=== PATIENT | female | born 1960 | race Caucasian/White ===

== ENCOUNTER 2024-01-06 07:53 | Outpatient (CLI) | payer OTHER | END 2024-01-06 07:54 | disposition home or self-care (01) | LOC: CSHULT 07:53 | PROVIDERS: ATTEND Physician Assistant Medical | DX: R49.0 Dysphonia (principal); K21.9 Gastro-esophageal reflux disease without esophagitis; K44.9 Diaphragmatic hernia without obstruction or gangrene; R10.13 Epigastric pain; R10.11 Right upper quadrant pain; Z86.010 Personal history of colon polyps; K76.0 Fatty (change of) liver, not elsewhere classified | CPT/HCPCS: 76705 ==

== ENCOUNTER 2024-02-09 09:46 | Outpatient (CLI) | payer OTHER | END 2024-02-09 09:47 | disposition home or self-care (01) | LOC: CSHRAD 09:46 | PROVIDERS: ATTEND Surgery | DX: K44.9 Diaphragmatic hernia without obstruction or gangrene (principal); K22.89 Other specified disease of esophagus; R19.8 Other specified symptoms and signs involving the digestive system and abdomen | CPT/HCPCS: 74220 ==

== ENCOUNTER 2024-09-13 10:23 | Outpatient (CLI) | payer OTHER | END 2024-09-13 10:24 | disposition home or self-care (01) | LOC: CSHMAMMO 10:23 | PROVIDERS: ATTEND Family Medicine | DX: Z12.31 Encounter for screening mammogram for malignant neoplasm of breast (principal); Z91.89 Other specified personal risk factors, not elsewhere classified | CPT/HCPCS: 77063; 77067 ==